=== PATIENT | female | born 1955 | race Caucasian/White ===

== ENCOUNTER → 2016-11-30 | Outpatient (CLI) | payer OTHER ==
[2013-01-02 13:09] VITALS: BP 132/70
[~2016-11-30] MED LIST: LEVOTHYROXINE; NORCO 325 MG-51 TAB PO
== END ==
LOC: LAB 07:57
DX: Z01.419 Encounter for gynecological examination (general) (routine) without abnormal findings (principal); E03.4 Atrophy of thyroid (acquired); Z13.220 Encounter for screening for lipoid disorders

== ENCOUNTER → 2016-12-16 | Outpatient (CLI) | payer SELFPAY ==
[2013-01-02 13:09] VITALS: BP 132/70
== END ==
LOC: LAB 10:35
DX: R20.2 Paresthesia of skin (principal)

== ENCOUNTER → 2017-08-06 | Outpatient (CLI) | payer BC ==
[2013-01-02 13:09] VITALS: BP 132/70
== END ==
LOC: MAMMO 13:29 → RAD 13:45 → MAMMO 13:45
DX: Z12.31 Encounter for screening mammogram for malignant neoplasm of breast (principal)

== ENCOUNTER → 2017-12-05 | Outpatient (CLI) | payer BC ==
[2013-01-02 13:09] VITALS: BP 132/70
[2017-12-05 07:51] LABS: EOS # 0.2 (0.04-0.40); EOS % 4.2 % (1.0-5.0); HEMATOCRIT 44.1 % (37.0-47.0); HEMOGLOBIN 14.6 g/dL (12.5-16.0); LYMPH# 1.1 (1.50-4.00); MEAN CELL VOLUME 87 fl (78-100); MEAN CORPUSCULAR HEMOGLOBIN 29 pg (27-31); MEAN CORPUSCULAR HGB CONC 33 g/dL (33-37); MEAN PLATELET VOLUME 9.4 fl (7.4-10.4); MONO # 0.5 (0.20-0.80); NEU # 2.7 (1.40-6.50); PLATELET COUNT 290 K/mm3 (130-400); RED BLOOD COUNT 5.06 M/mm3 (4.10-5.30); RED CELL DISTRIBUTION WIDTH 13.8 % (11.5-14.5); WHITE BLOOD COUNT 4.5 K/mm3 (4.8-10.8)
[2017-12-05 08:18] LABS: BUN/CREATININE RATIO 27.4 (6.0-26.0); POTASSIUM 4.3 mmol/L (3.6-5.0); TOTAL BILIRUBIN 0.5 mg/dL (0.2-1.3); TOTAL PROTEIN 7.2 g/dL (6.3-8.2)
== END ==
LOC: LAB 07:38
PROVIDERS: Nurse Practitioner Family
DX: Z01.419 Encounter for gynecological examination (general) (routine) without abnormal findings (principal); Z12.39 Encounter for other screening for malignant neoplasm of breast; Z13.220 Encounter for screening for lipoid disorders; E03.4 Atrophy of thyroid (acquired)

== ENCOUNTER → 2018-08-11 | Outpatient (CLI) | payer BC ==
[2013-01-02 13:09] VITALS: BP 132/70
== END ==
LOC: MAMMO 13:07
DX: Z12.31 Encounter for screening mammogram for malignant neoplasm of breast (principal)

== ENCOUNTER → 2019-09-28 | Outpatient (CLI) | payer MEDICARE, OTHER ==
[2013-01-02 13:09] VITALS: BP 132/70
== END ==
LOC: MAMMO 10:35
DX: Z13.820 Encounter for screening for osteoporosis (principal)

== ENCOUNTER → 2019-09-28 | Outpatient (CLI) | payer MEDICARE, OTHER ==
[2013-01-02 13:09] VITALS: BP 132/70
== END ==
LOC: MAMMO 10:45
DX: Z12.31 Encounter for screening mammogram for malignant neoplasm of breast (principal); Z13.820 Encounter for screening for osteoporosis

== ENCOUNTER → 2019-12-22 | Outpatient (CLI) | payer MEDICARE, OTHER ==
[2013-01-02 13:09] VITALS: BP 132/70
[2019-12-22 08:15] LABS: EOS # 0.2 (0.04-0.40); HEMOGLOBIN 14.9 g/dL (12.5-16.0); LYMPH# 1.2 (1.50-4.00); MEAN CELL VOLUME 86 fl (78-100); MEAN CORPUSCULAR HEMOGLOBIN 28 pg (27-31); MEAN CORPUSCULAR HGB CONC 32 g/dL (33-37); MEAN PLATELET VOLUME 9.3 fl (7.4-10.4); MONO # 0.5 (0.20-0.80); NEU # 3.5 (1.40-6.50); PLATELET COUNT 318 K/mm3 (130-400); RED BLOOD COUNT 5.35 M/mm3 (4.10-5.30); RED CELL DISTRIBUTION WIDTH 14.3 % (11.5-14.5); WHITE BLOOD COUNT 5.3 K/mm3 (4.8-10.8)
[2019-12-22 08:19] LABS: ALBUMIN 4.1 g/dL (3.4-4.8)
[2019-12-22 08:20] LABS: CALCIUM 9.3 mg/dL (8.3-10.5)
[2019-12-22 08:22] LABS: TOTAL PROTEIN 7.1 g/dL (6.2-8.1)
[2019-12-22 08:23] LABS: TOTAL BILIRUBIN 0.5 mg/dL (0.2-1.2)
== END ==
LOC: LAB 07:44
PROVIDERS: Family Medicine
DX: Z01.419 Encounter for gynecological examination (general) (routine) without abnormal findings (principal); Z12.31 Encounter for screening mammogram for malignant neoplasm of breast; Z13.220 Encounter for screening for lipoid disorders; E03.4 Atrophy of thyroid (acquired); R20.2 Paresthesia of skin

== ENCOUNTER → 2020-10-03 | Outpatient (CLI) | payer MEDICARE, OTHER ==
[2013-01-02 13:09] VITALS: BP 132/70
== END ==
LOC: MAMMO 09:10
DX: Z12.31 Encounter for screening mammogram for malignant neoplasm of breast (principal)

== ENCOUNTER → 2020-12-26 | Outpatient (CLI) | payer MEDICARE, OTHER ==
[2013-01-02 13:09] VITALS: BP 132/70
[2020-12-26 07:56] LABS: BASO # 0.05 (0.02-0.10); EOS # 0.18 (0.04-0.40); HEMATOCRIT 45.5 % (37.0-47.0); LYMPH# 1.28 (1.50-4.00); MEAN CELL VOLUME 85 fl (78-100); MEAN CORPUSCULAR HEMOGLOBIN 28 pg (27-31); MEAN CORPUSCULAR HGB CONC 33 g/dL (33-37); MEAN PLATELET VOLUME 8.7 fl (7.4-10.4); NEU # 4.01 (1.40-6.50); PLATELET COUNT 321 K/mm3 (130-400); RED BLOOD COUNT 5.33 M/mm3 (4.10-5.30); RED CELL DISTRIBUTION WIDTH 13.3 % (11.5-14.5)
[2020-12-26 08:12] LABS: POTASSIUM 4.3 mmol/L (3.5-5.1)
[2020-12-26 08:13] LABS: ALBUMIN 4.1 g/dL (3.4-4.8)
[2020-12-26 08:14] LABS: CALCIUM 9.4 mg/dL (8.3-10.5)
[2020-12-26 08:15] LABS: TOTAL PROTEIN 7.1 g/dL (6.2-8.1)
[2020-12-26 08:17] LABS: TOTAL BILIRUBIN 0.4 mg/dL (0.2-1.2)
== END ==
LOC: LAB 07:43
PROVIDERS: Family Medicine
DX: Z00.00 Encounter for general adult medical examination without abnormal findings (principal); E78.5 Hyperlipidemia, unspecified; E03.9 Hypothyroidism, unspecified

== ENCOUNTER → 2021-10-09 | Outpatient (CLI) | payer MEDICARE, OTHER | LOC: MAMMO 11:29 | DX: Z12.31 Encounter for screening mammogram for malignant neoplasm of breast (principal) ==

== ENCOUNTER → 2021-12-10 | Outpatient (CLI) | payer MEDICARE, OTHER | LOC: RAD 10:50 | DX: M47.816 Spondylosis without myelopathy or radiculopathy, lumbar region (principal); M41.86 Other forms of scoliosis, lumbar region ==

== ENCOUNTER → 2021-12-25 | Outpatient (CLI) | payer MEDICARE, OTHER ==
[2021-12-25 08:15] LABS: BASO # 0.04 K/mm3 (0.02-0.10); EOS # 0.17 K/mm3 (0.04-0.40); HEMATOCRIT 43.1 % (37.0-47.0); LYMPH# 1.39 K/mm3 (1.50-4.00); MEAN CELL VOLUME 87 fl (78-100); MEAN CORPUSCULAR HEMOGLOBIN 28 pg (27-31); MEAN CORPUSCULAR HGB CONC 33 g/dL (33-37); MONO # 0.55 K/mm3 (0.20-0.80); NEU # 3.49 K/mm3 (1.40-6.50); PLATELET COUNT 284 K/mm3 (130-400); RED BLOOD COUNT 4.95 M/mm3 (4.10-5.30); RED CELL DISTRIBUTION WIDTH 13.3 % (11.5-14.5); WHITE BLOOD COUNT 5.7 K/mm3 (4.8-10.8)
[2021-12-25 08:24] LABS: POTASSIUM 4.2 mmol/L (3.5-5.1)
[2021-12-25 08:26] LABS: CALCIUM 9.5 mg/dL (8.3-10.5)
[2021-12-25 08:27] LABS: TOTAL PROTEIN 6.8 g/dL (6.2-8.1)
[2021-12-25 08:29] LABS: TOTAL BILIRUBIN 0.4 mg/dL (0.2-1.2)
== END ==
LOC: LAB 07:55
PROVIDERS: Family Medicine
DX: Z00.00 Encounter for general adult medical examination without abnormal findings (principal); E78.5 Hyperlipidemia, unspecified; E03.9 Hypothyroidism, unspecified

== ENCOUNTER → 2024-02-11 | Outpatient (CLI) | payer MEDICARE, OTHER | LOC: MAMMO 07:46 | DX: Z13.820 Encounter for screening for osteoporosis (principal); Z00.00 Encounter for general adult medical examination without abnormal findings; E03.9 Hypothyroidism, unspecified ==

== ENCOUNTER → 2024-03-12 | Outpatient (CLI) | payer MEDICARE, OTHER ==
[~2024-03-12] VITALS: Ht 167.6 cm; Wt 68.0 kg
[~2024-03-12] MED LIST changes: +Regadenoson 0.08 MG/ML 5 ML VIAL IV SCH
== END ==
LOC: CARDREHAB 09:47
DX: Z87.898 Personal history of other specified conditions (principal)
CPT/HCPCS: A9500; J2785

== ENCOUNTER → 2024-06-29 | Outpatient (CLI) | payer MEDICARE, OTHER ==
[~2024-06-29] MED LIST changes: -Regadenoson 0.08 MG/ML 5 ML VIAL IV SCH
== END ==
LOC: LAB 07:56
DX: E78.5 Hyperlipidemia, unspecified (principal)